=== PATIENT | male | born 1990 | race Caucasian/White ===

== ENCOUNTER 2021-10-20 22:55 | Emergency (ER) | payer OTHER ==
[~2021-10-20] VITALS: Ht 167.6 cm; Wt 72.0 kg
[2021-10-20 22:55] VITALS: BP 130/88
--- NOTE | 2021-10-20 22:57 | PHYS DOC ---
Past History Past Medical History: No Pertinent History Past Surgical History: No Surgical History Smoking: Non-smoker Alcohol Use: Rarely Drug Use: None General Adult HPI: HPI: ". I ve got a sore throat,.. fever, chills,... 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 Patient has been stationed in [facility] [place] for the past year. Returned on September 06. No specific ill contacts. Patient currently assigned to [employer] for his duty station. Patient up-to-date with vaccinations. No history immunosuppression. Pt. follows with Dr. Roberts. Review of Systems: Review of Systems: Constitutional: Subjective complaints of fever or chills Eyes: Denies change in visual acuity HENT: Complaints of nasal congestion and sore throat Respiratory: Denies cough or shortness of breath Cardiovascular: Denies chest pain or edema GI: Denies abdominal pain, nausea, vomiting, bloody stools or diarrhea : Denies dysuria Musculoskeletal: Denies back pain or joint pain Integument: Denies rash Neurologic: Denies headache, focal weakness or sensory changes Endocrine: Denies polyuria or polydipsia Lymphatic: Denies swollen glands Psychiatric: Denies depression or anxiety Family History: Family History: Noncontributory to presentation Current Medications: Current Meds: See nursing for home meds Allergies: Allergies: No known drug allergies Physical Exam: PE: Constitutional: Well developed, well nourished, no acute distress, non-toxic appearance. [] HENT: Normocephalic, atraumatic, bilateral external ears normal, oropharynx moist, no oral exudates, nose normal. Mild injection of pharynx. TMs clear Eyes: PERRLA, EOMI, conjunctiva normal, no discharge. [] Neck: Normal range of motion, no tenderness, supple, no stridor. [] Cardiovascular: Tachycardia heart rate regular rhythm, no murmur [] Lungs & Thorax: Bilateral breath sounds equal apex on auscultation [] Abdomen: Bowel sounds hyperactivity, soft, no tenderness, no masses, no pulsatile masses. [] Skin: Warm, dry, no erythema, no rash. [] Back: No tenderness, no CVA tenderness. [] Extremities: No tenderness, no cyanosis, no clubbing, ROM intact, no edema. [] Neurologic: Alert and oriented X 3, normal motor function, normal sensory function, no focal deficits noted. [] Psychologic: Affect normal, judgement normal, mood normal. [] EKG: EKG: [] Radiology/Procedures: Radiology/Procedures: [] Heart Score: C/O Chest Pain: N/A Risk Factors: Risk Factors: DM, Current or recent (<one month) smoker, HTN, HLP, family history of CAD, obesity. Risk Scores: Score 0 - 3: 2.5% MACE over next 6 weeks - Discharge Home Score 4 - 6: 20.3% MACE over next 6 weeks - Admit for Clinical Observation Score 7 - 10: 72.7% MACE over next 6 weeks - Early Invasive Strategies Course & Med Decision Making: Course & Med Decision Making Pertinent Labs and Imaging studies reviewed. (See chart for details) Patient to gargle with Listerine 4 times a day. Take Tylenol and ibuprofen for discomfort. Follow-up pending Covid test. Self isolate until Covid testing known. Patient advised that strep screen is negative. Patient may also take Benadryl 25 to 50 mg 4 times a day for congestion and drainage. Take Tamiflu 75 tiwce a day 5 days. Impression: 1. Viral syndrome -influenza A positive [] Julia Disclaimer: Julia Disclaimer: This electronic medical record was generated, in whole or in part, using a voice recognition dictation system. Departure Departure: Referrals: SREEKANTH ROBERTS DO (PCP) Scripts Oseltamivir Phosphate (TAMIFLU) 75 Mg Capsule 75 MG PO BID for Influ A for 5 Days, #10 CAP Prov: ROSCOE BIRCH MD 10/21/21 Julia Disclaimer This chart was dictated in whole or in part using Voice Recognition software in a busy, high-work load, and often noisy Emergency Department environment. It may contain unintended and wholly unrecognized errors or omissions. ROSCOE BIRCH MD Oct 20, 2021 22:57
[2021-10-21] MEDS ORDERED: IBUPROFEN 600 MG TABLET. PO ONE
[2021-10-21] MEDS ORDERED: ACETAMINOPHEN 500 MG TABLET PO ONE
[2021-10-21 00:03] LABS: INFLUENZA B PATIENT NEGATIVE (NEGATIVE)
[2021-10-21 00:24] LABS: INFLUENZA A PATIENT POSITIVE (NEGATIVE)
[2021-10-21] MEDS ORDERED: OSELTAMIVIR 75 MG CAPSULE PO ONE (00:30)
[2021-10-21] MEDS ORDERED: OSEL75CA PO (00:30)
== END 2021-10-21 00:54 | disposition home or self-care (01) ==
LOC: ER 22:55
DX: J10.1 Influenza due to other identified influenza virus with other respiratory manifestations (principal); Z20.822 Contact with and (suspected) exposure to COVID-19
CPT/HCPCS: 87070; 87426; 87804; 87880; 99284; C9803; U0003

== ENCOUNTER 2022-02-05 00:06 | Emergency (ER) | payer OTHER ==
[~2022-02-05] VITALS: Ht 167.6 cm; Wt 72.0 kg
[~2022-02-05 00:06] MED LIST: OSEL75CA PO
[2022-02-05 00:27] VITALS: BP 124/85
--- NOTE | 2022-02-05 00:42 | PHYS DOC ---
Past History Past Medical History: No Pertinent History Past Surgical History: No Surgical History Smoking: Non-smoker Alcohol Use: Rarely Drug Use: None General Adult EDM: Chief Complaint: CONGESTION HPI: HPI: " ..I ve been coughing,.. sick.. discolored sputum... 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 Patient states symptoms have been worse since Monday of this week. Patient denies any recent travel. Did come from [facility] [employer] [facility] [place] in August. 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 Patient does follow-up [facility] for care. Is up-to-date with vaccinations including COVID and flu vaccines. Has been using [id number] cold meds without any relief. Review of Systems: Review of Systems: Constitutional: History of fever or chills Eyes: Denies change in visual acuity HENT: History of nasal congestion and sore throat Respiratory: History of productive cough and wheezing Cardiovascular: Denies chest pain or edema GI: Denies abdominal pain, nausea, vomiting, bloody stools or diarrhea : Denies dysuria Musculoskeletal: Denies back pain or joint pain Integument: Denies rash Neurologic: Denies headache, focal weakness or sensory changes Endocrine: Denies polyuria or polydipsia Lymphatic: Denies swollen glands Psychiatric: Denies depression or anxiety Family History: Family History: Noncontributory the presentation Current Medications: Current Meds: See nursing for home meds Allergies: Allergies: Allergies Coded Allergies Type Severity Reaction Last Updated Verified No Known Drug Allergies 10/20/21 No Physical Exam: PE: Constitutional: Well developed, well nourished, moderate acute distress, non- toxic appearance. [] HENT: Normocephalic, atraumatic, bilateral external ears normal, oropharynx moist, injected pharynx,, no oral exudates, nose swollen turbinates and disc olored nasal discharge Eyes: PERRLA, EOMI, conjunctiva normal, no discharge. [] Neck: Normal range of motion, no tenderness, supple, no stridor. [] Cardiovascular:Heart rate regular rhythm, no murmur [] Lungs & Thorax: Bilateral breath sounds equal apex with scattered wheezes on auscultation [] Abdomen: Bowel sounds normal, soft, no tenderness, no masses, no pulsatile masses. [] Skin: Warm, dry, no erythema, no rash. [] Back: No tenderness, no CVA tenderness. [] Extremities: No tenderness, no cyanosis, no clubbing, ROM intact, no edema. [] Neurologic: Alert and oriented X 3, normal motor function, normal sensory function, no focal deficits noted. [] Psychologic: Affect anxious, judgement normal, mood normal. [] EKG: EKG: [] Radiology/Procedures: Radiology/Procedures: [] Heart Score: C/O Chest Pain: N/A Risk Factors: Risk Factors: DM, Current or recent (<one month) smoker, HTN, HLP, family history of CAD, obesity. Risk Scores: Score 0 - 3: 2.5% MACE over next 6 weeks - Discharge Home Score 4 - 6: 20.3% MACE over next 6 weeks - Admit for Clinical Observation Score 7 - 10: 72.7% MACE over next 6 weeks - Early Invasive Strategies Course & Med Decision Making: Course & Med Decision Making Pertinent Labs and Imaging studies reviewed. (See chart for details) Patient take [id number] Tylenol and ibuprofen for discomfort. Patient take prednisone 50 mg a day for the next 5 days. Patient use nasal Flonase 2 sprays at night. Patient irrigate nose as needed with normal saline sprays. Take a Zithromax 250 a day. Use MDI 2 puffs 4 times a day. Follow-up with [facility]. Return if any concerns. Impression: 1. Upper Respiratory Infection 2. Sinusitis 3. Bronchitis [] Dragon Disclaimer: Julia Disclaimer: This electronic medical record was generated, in whole or in part, using a voice recognition dictation system. Departure Departure: Referrals: SREEKANTH ROBERTS DO (PCP) Scripts Prednisone (PREDNISONE) 50 Mg Tablet 50 MG PO DAILY for bronchitis for 5 Days, #5 TAB Prov: ROSCOE BIRCH MD 02/05/22 Fluticasone Propionate (Flonase Allergy Relief) 9.9 Ml [place].susp 2 SPRAYS NS DAILY for sinusitis for 30 Days, ML Prov: ROSCOE BIRCH MD 02/05/22 Azithromycin (ZITHROMAX) 250 Mg Tablet 250 MG PO DAILY for ANTI-BIOTIC, #5 TAB 0 Refills Prov: ROSCOE BIRCH MD 02/05/22 Prednisone (PREDNISONE) 50 Mg Tablet 50 MG PO DAILY for bronchitis for 5 Days, #5 TAB Prov: ROSCOE BIRCH MD 02/05/22 Dragon Disclaimer This chart was dictated in whole or in part using Voice Recognition software in a busy, high-work load, and often noisy Emergency Department environment. It may contain unintended and wholly unrecognized errors or omissions. ROSCOE BIRCH MD Feb 05, 2022 00:42
[2022-02-05] MEDS ORDERED: AZIT250T PO (00:49)
[2022-02-05] MEDS ORDERED: FLUT9.9S NS (00:49)
[2022-02-05] MEDS ORDERED: PRED50TA PO ×2 (00:49→00:56)
[2022-02-05] MEDS: AZITHROMYCIN 250 MG TABLET. PO ONE (01:00)
[2022-02-05] MEDS: diphenhydrAMINE HCL 25 MG CAPSULE PO ONE (01:00)
[2022-02-05] MEDS: predniSONE 10 MG TABLET. PO ONE (01:00)
[2022-02-05] MEDS: ALBUTEROL SULFATE 8GM INHALER. INH ONE (01:03)
== END 2022-02-05 01:02 | disposition home or self-care (01) ==
LOC: ER 00:06
DX: J40 Bronchitis, not specified as acute or chronic (principal); J01.90 Acute sinusitis, unspecified
CPT/HCPCS: 94640; 99284; J7512; Q0163; 94664